=== PATIENT | male | born 1950 | race Caucasian/White ===

== ENCOUNTER 2019-05-19 00:48 | Emergency (ER) | payer BC ==
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
[2019-05-19 01:47] LABS: ABS Basophils 0.1 10^3/ul (0-0.2); ABS Eosinophils 0.1 10^3/ul (0-0.6); ABS Lymphocytes 1.5 10^3/ul (1.0-4.8); ABS Monocytes 1.3 10^3/ul (0-0.8); ABS Neutrophils 10.1 10^3/ul (1.5-7.7); Eosinophil % 0.5 %; Hematocrit 45 % (42-52); Hemoglobin 15.2 g/dL (14.0-18.0); Lymphocyte % 11.8 %; Mean Corpuscular HGB Conc 34 g/dL (31-36); Mean Corpuscular Hemoglobin 33 pg (27-31); Mean Corpuscular Volume 98 fL (80-94); Mean Platelet Volume 7.8 fL (7.4-10.4); Nucleated Red Blood Cells % 0.1; Platelet Count 225 10^3/uL (150-450); Red Blood Count 4.59 10^6 /uL (4.18-5.48); Red Cell Distribution Width 14 % (10-15); White Blood Count 13.1 10^3/uL (3.5-10.8)
[2019-05-19 02:04] LABS: Albumin/Globulin Ratio 1.4 (1-3); BUN/Creatinine Ratio 21.3 (8-20); C Reactive Protein 35.62 mg/L (<8.01); Calcium 9.1 mg/dL (8.6-10.3); EGFR African American 96.9 (>60); Globulin 2.9 g/dL (2-4); Potassium 4.7 mmol/L (3.5-5.0); Total Bilirubin 0.7 mg/dL (0.2-1.0); Total Protein 6.9 g/dL (6.4-8.9)
[2019-05-19] MEDS ORDERED: Iohexol 300* (CONTRAST) 10 ML SDV IV ONE (03:18)
[2019-05-19 04:59] VITALS: BP 139/86
== END 2019-05-19 04:50 | disposition home or self-care (01) ==
LOC: ED 00:48
DX: R10.9 Unspecified abdominal pain (principal)
CPT/HCPCS: 36415; 74177; 80053; 83605; 83690; 85025; 86140; 93005; 99283; Q9967